=== PATIENT | female | born 1985 | race Caucasian/White ===

== ENCOUNTER 2025-02-08 13:07 | Emergency (ER) | payer MEDICAID, SELFPAY ==
[2025-02-08 13:08] VITALS: BP 96/75; PULSE 81; RESP 17; TEMP 36.6; O2SAT 98
--- NOTE | 2025-02-08 13:20 | RAD_ITS ---
PROCEDURE: KNEE 4 OR MORE VIEWS 02/08/2025 REASON FOR EXAM: Knee pain TECHNIQUE: 3 view(s) of the right knee COMPARISON: None FINDINGS: No acute fracture or dislocation. Joint spaces are maintained. No joint effusion. No significant soft tissue swelling. RAD/Knee 4 or More Views IMPRESSION: No acute findings. Reading Location: [facility]
--- NOTE | 2025-02-08 13:28 | EDS_ITS ---
HPI <BERNADETTE Andersen - Last Filed: 02/08/25 14:18> History of Present Illness Chief Complaint: Lower Extremity Injury Narrative Narrative: Patient a 39-year-old female, history of hypothyroidism presents the emergency department with right knee pain. Patient states that she has no history of injury with this knee, no surgery. Patient states she was just walking around the corner to get a red bull at the gas station when she felt intense pain and pressure to her knee. She states that the pain is unbearable and is here for evaluation [facility] <BERNADETTE Andersen - Last Filed: 02/08/25 14:18> [facility] Medical History (Updated 02/08/25 @ 14:16 by BERNADETTE Andersen) Physical exam, pre-employment Home Medications ?Medication ?Instructions ?Recorded ?Last Taken ?Type hydrocodone-acetaminophen 5-325mg 1 tab PO Q6H PRN PRN Pain 3 days 02/08/25 Unknown Rx 5mg-325mg #10 TABLETS ibuprofen 600 mg tablet 600 mg PO Q6H PRN PRN pain # 20 02/08/25 Unknown Rx TABLETS Allergy/AdvReac Type Severity Reaction Status Date / Time No Known Allergies Allergy Verified 02/08/25 13:10 Social History Smoking Status: Unknown if ever smoked ROS <BERNADETTE Andersen - Last Filed: 02/08/25 14:18> ROS ED ROS Narrative Constitutional: Negative for fever, chills, weight loss, weakness Eyes: Negative for vision loss, vision change, double vision ENT: Negative for any sore throat, ear pain, congestion Cardiovascular: Negative for any chest pain, tightness, palpitations Respiratory: Negative for any cough, sputum production, hemoptysis, dyspnea, dyspnea on exertion, orthopnea Gastrointestinal: Negative for any abdominal pain, nausea, vomiting, diarrhea, constipation, blood in stool, blood in vomit : Negative for any urinary frequency, dysuria, retention, blood in urine Muscle skeletal: Negative for any neck pain, back pain. Positive for right knee pain Neurological: Negative for any headache, syncope, dizziness Skin: Negative for any rashes, itching, abrasions, lacerations Psychiatric: Negative for any depression, anxiety, stress, suicidal ideation, homicidal ideation Hematologic: Negative for any excessive bruising, easy bleeding EXAM <BERNADETTE Andersen - Last Filed: 02/08/25 14:18> Physical Exam Narrative Exam Narrative: Vital signs reviewed. Patient on initial evaluation, patient was crying. Extremities: No peripheral edema, no signs of gross trauma or deformity. Active full range of motion of all extremities. Patient has an intact extensor mechanism. Worsening pain with abduction. Patient has pain more to the lateral aspect. There is no deformity, there is no joint effusion. Neuro: Cranial nerves II through XII intact, no focal neurological deficits. Skin: Clean dry and intact with no rash, purpura, petechiae, vesicles or pustules. Backs/flank: No CVA tenderness, no midline spinal tenderness, no deformity. Psych: Normal mood and affect. No SI, HI or acute psychosis. Const Vital Signs: 02/08/25 13:08 Temperature 97.8 F Temperature Source Oral Pulse Rate 81 Respiratory Rate 17 Blood Pressure 96/75 Blood Pressure Mean 82 Pulse Ox 98 Oxygen Delivery Method Room Air Positive well nourished and well developed General Appearance ED: well developed <Dr. Nora Costa DO - Last Filed: 02/12/25 14:02> Physical Exam Const Vital Signs: 02/08/25 13:08 Temperature 97.8 F Temperature Source Oral Pulse Rate 81 Respiratory Rate 17 Blood Pressure 96/75 Blood Pressure Mean 82 Pulse Ox 98 Oxygen Delivery Method Room Air MDM <BERNADETTE Andersen - Last Filed: 02/08/25 14:18> MDM Radiography Diagnostic Testing: Clinical Impression(s) from Imaging Studies Knee X-Ray 02/08/25 13:20 IMPRESSION: No acute findings. Reading Location: [facility] Treatment and Re-Evaluation :: Differential diagnosis includes however is not limited to: Right knee pain, right knee internal derangement, joint effusion, sprain Patient on my initial evaluation was crying. Presenting to the emergency department with complaints of right knee pain no injury. Patient has good range of motion of the right knee. There is no red flag signs, intact extensor mechanism. Patient was given IM Toradol, oral [place]. X-rays of the knee will be obtained. All radiologic examinations were read, reviewed by the emergency department attending. From these reads, a plan of care will be put in place. Patient's x-ray of the right knee shows no acute findings. At this time, patient placed in the immobilizer, crutches he will given pain medicine for home. Patient structured to ice and elevate. Patient does have good range of motion. Do not we have any red flag signs. Patient needs to follow-up with orthopedics. Patient does not work the next 2 days. She is instructed to use an Jonathon bandage if she needs to drive. All questions were answered, patient stable for discharge <Dr. Nora Costa, DO - Last Filed: 02/12/25 14:02> [facility] Narrative Medical decision making narrative: I have personally performed a face to face assessment of the patient and have reviewed the JB Note. I performed a substantive portion of the visit including all aspects of the following. My murry findings include: History is Patient is a 39-year-old female presenting with acute onset of severe right knee pain. Patient states she was at the gas station he something to drink before work when she suddenly felt severe pain in her right knee. She has not been able to walk. She denies any injury or twisting movements that could have caused it. She is never had any like this before. Denies any prior injuries or problems with her knee in the past. Denies associate numbness or tingling. Denies other injuries or complaints. Did not take anything for pain prior to arrival. On exam patient is uncomfortable appearing but no acute distress. She has good distal pulses with sensation intact in all dermatomes of her leg. No obvious joint effusion present. Extensor mechanism is preserved. There is no high riding or low riding patella. No significant effusion is present however she does have tenderness most pronounced on the lateral aspect of the knee. No significant laxity appreciated but patient is not tolerate range of motion well. Concern for possible ligamentous injury versus partial tendon tear. Patient is placed in a knee immobilizer. Is given IM Toradol and [place] for pain control. X-ray of the knee reviewed by myself as well as radiology does not show any acute process. Given outpatient orthopedics follow-up and short course of pain medication. Given return precautions. Given a work note. Discharged home in stable condition. Other additions or changes: [None] Radiography Diagnostic Testing: Clinical Impression(s) from Imaging Studies Knee X-Ray 02/08/25 13:20 IMPRESSION: No acute findings. Reading Location: [facility] Discharge Plan Triage Chief Complaint: Lower Extremity Injury ED Midlevel Provider: Miko Churchill ED Provider: Nora Costa Dx/Rx/DC Orders Clinical Impression: Acute knee pain Instructions: ED Arthralgia, ED Knee Sprain Prescriptions: New ibuprofen 600 mg tablet 600 mg PO Q6H PRN PRN (Reason: pain) Qty: 20 0RF hydrocodone-acetaminophen 5-325 mg tablet 1 tab PO Q6H PRN PRN (Reason: Pain) 3 Days Qty: 10 0RF Primary Care Provider: Lauren Mathew Referrals: Salty Montalvo MD [Med Staff - Active Staff] - Lauren Mathew [employer] [Primary Care Provider] - Activity Restrictions/Additional Instructions: please follow-up with orthopedics. Use the knee immobilizer, Jonathon bandage. Use the crutches for comfort. Ice and elevate. Print Language: [place] Disposition Disposition: Home, Self Care Discharge Date/Time: 02/08/25 14:28
[2025-02-08] MEDS: Ketorolac 15 MG/ML Vial IM (13:42)
[2025-02-08] MEDS: HYDROcodone Bitartrate/Apap 5/325 Tablet PO (13:42)
[2025-02-08 14:27] VITALS: BP 96/75; PULSE 81; RESP 17; TEMP 36.6; O2SAT 98
== END 2025-02-08 14:28 | disposition home or self-care (01) ==
PROVIDERS: Emergency Provider Emergency Medicine; PCP Nurse Practitioner Family; Referring Provider Emergency Medicine; Visit Provider Emergency Medicine
DX: M25.561 Pain in right knee (principal)
CPT/HCPCS: 73564; 96372; 99284